=== PATIENT | female | born 1940 | race Caucasian/White ===

== ENCOUNTER → 2025-03-01 | Outpatient (CLI) | payer MEDICARE, SELFPAY ==
[2025-03-01 10:10] LABS: Basophils # (Auto) 0.1 Thou/mm3 (0.0-0.2); Basophils % (Auto) 1 % (0-2.5); Eosinophils # (Auto) 0.2 Thou/mm3 (0.0-0.5); Eosinophils % (Auto) 4 % (0-10); Hematocrit 37.9 % (36.0-46.0); Hemoglobin 13.4 g/dL (12.0-16.0); Immature Granulocytes % (Auto) 0 % (0-0); Immature Granulocytes Auto 0.01 Thou/mm3 (0.00-0.00); Lymphocytes # (Auto) 1.6 Thou/mm3 (1.0-4.8); Lymphocytes % (Auto) 31 % (10-50); Mean Corpuscular HGB Conc 35.4 g/dl (31.0-37.0); Mean Corpuscular Hemoglobin 34.2 pg (25.0-35.0); Mean Corpuscular Volume 97 fL (80-100); Monocytes # (Auto) 0.5 Thou/mm3 (0.0-0.8); Monocytes % (Auto) 9 % (0-12); Neutrophils # (Auto) 2.9 Thou/mm3 (1.8-7.7); Neutrophils % (Auto) 56 % (37-80); Nucleated Red Blood Cell % 0 /100 WBC (0); Platelet Count 170 Thou/mm3 (140-440); RDW Standard Deviation 46.1 fL (36.4-46.3); Red Blood Count 3.92 Miln/mm3 (4.00-5.20); White Blood Count 5.3 Thou/mm3 (3.6-11.0)
[2025-03-01 10:22] LABS: Glucose Estimated Average 123 mg/dL (80-131); Hemoglobin A1C 5.9 % Hgb (4.8-6.0)
[2025-03-01 10:28] LABS: Alanine Aminotransferase 13 U/L (10-49); Albumin, Serum 4.6 gm/dL (3.4-4.8); Albumin/Globulin Ratio 1.7 (1.2-2.2); Alkaline Phosphatase 55 U/L (46-116); Anion Gap 10 (7-16); Aspartate Amino Transferase 25 U/L (0-34); BUN/Creatinine Ratio 15 Ratio (12-20); Bilirubin,Total 0.7 mg/dL (0.3-1.2); Blood Urea Nitrogen 17 mg/dL (9-23); Calcium 9.7 mg/dL (8.3-10.6); Calcium (Corrected) 9.7 mg/dL (8.5-10.1); Carbon Dioxide 27.5 mMol/L (20.0-31.0); Cardiac Risk Estimate 3.5 RATIO (3.7-5.6); Chloride 105 mMol/L (98-107); Cholesterol 145 mg/dL (132-200); Creatinine (Component) 1.1 mg/dL (0.6-1.3); Free T4 (Free Thyroxine) 1.25 ng/dL (0.89-1.76); Globulin 2.7 gm/dL (2.3-3.5); Glucose 116 mg/dL (74-106); HDL Cholesterol 41 mg/dL (40-60); LDL Cholesterol,Calculated 69 mg/dL (0-130); Osmolality,Calculated 285 (275-295); Potassium 4.9 mMol/L (3.4-5.1); Sodium 142 mMol/L (136-145); Thyroid Stimulating Hormone 1.78 uIU/mL (0.55-4.78); Total Protein 7.3 gm/dL (5.7-8.2); Triglycerides 176 mg/dL (30-150); Vitamin B12 622 pg/mL (211-911); Vitamin D 25 Hydroxy Total 38.4 ng/mL (7.3-40.2); eGFR 50 See Note
[2025-03-01 10:45] LABS: Syphilis Nonreactive (Nonreactive)
== END | disposition home or self-care (01) ==
PROVIDERS: PCP Family Medicine; Referring Provider Psychiatry & Neurology Neurology; Visit Provider Psychiatry & Neurology Neurology
DX: R41.3 Other amnesia (principal); E78.5 Hyperlipidemia, unspecified; I10 Essential (primary) hypertension
CPT/HCPCS: 36415; 80053; 80061; 82306; 82607; 83036; 84439; 84443; 85025; 86780

== ENCOUNTER → 2025-03-01 | Outpatient (CLI) | payer MEDICARE, SELFPAY ==
--- NOTE | 2025-03-01 13:00 | XR_ITS ---
Examination: CT brain head without contrast. 2-D sagittal coronal reconstructions Date and time of exam:March 01, 2025 1336 hours INDICATIONS: Increasing memory loss 10 years CTDI: vol (mGy):44.9 DLP: (mGycm):887 Technique: Multiple CT axial sections of the brain have been obtained, 5 mm slice thickness. Contrast has not been administered. 2-D sagittal, coronal reconstructions have been obtained Low dose protocols were performed. One or more of the following dose reduction techniques were used; automated exposure control, adjustment of the mA and/or KV according to patient size, use of iterative reconstruction technique. Findings: No significant ventricular enlargement. Moderate atrophy Intra-axial or extra-axial hemorrhage density is not seen. No mass effect or midline shift Basal cisterns are not remarkable. Fourth ventricle is midline. Cranial vault intact. Impression: Negative for acute hemorrhage, mass effect or midline shift
== END | disposition home or self-care (01) ==
PROVIDERS: PCP Family Medicine; Referring Provider Psychiatry & Neurology Neurology; Visit Provider Psychiatry & Neurology Neurology
DX: R41.3 Other amnesia (principal)
CPT/HCPCS: 70450

== ENCOUNTER → 2025-08-08 | Outpatient (CLI) | payer MEDICARE, SELFPAY ==
[2025-08-08 12:20] LABS: Alanine Aminotransferase 20 U/L (10-49); Albumin, Serum 4.9 gm/dL (3.4-4.8); Albumin/Globulin Ratio 1.6 (1.2-2.2); Alkaline Phosphatase 67 U/L (46-116); Anion Gap 9 (7-16); Aspartate Amino Transferase 33 U/L (0-34); BUN/Creatinine Ratio 8 Ratio (12-20); Bilirubin,Total 0.7 mg/dL (0.3-1.2); Blood Urea Nitrogen 9 mg/dL (9-23); Calcium 10.4 mg/dL (8.3-10.6); Calcium (Corrected) 10.4 mg/dL (8.5-10.1); Carbon Dioxide 25.1 mMol/L (20.0-31.0); Chloride 105 mMol/L (98-107); Creatinine (Component) 1.1 mg/dL (0.6-1.3); Globulin 3.0 gm/dL (2.3-3.5); Glucose 109 mg/dL (74-106); Osmolality,Calculated 277 (275-295); Potassium 4.5 mMol/L (3.4-5.1); Sodium 139 mMol/L (136-145); Total Protein 7.9 gm/dL (5.7-8.2); eGFR 50 See Note
== END | disposition home or self-care (01) ==
PROVIDERS: PCP Family Medicine; Referring Provider Family Medicine; Visit Provider Family Medicine
DX: N18.1 Chronic kidney disease, stage 1 (principal)
CPT/HCPCS: 36415; 80053

== ENCOUNTER 2025-08-16 08:57 | Observation (INO) | payer MEDICARE, SELFPAY ==
[2025-08-16] VITALS (10 sets, daily range): BP systolic 113–163; BP diastolic 76–90; PULSE 64–98; RESP 16–99; TEMP 36.2–37.1; O2SAT 92–100; BMI 21.8; BMI 23.8; BMI 23.4
--- NOTE | 2025-08-16 09:00 | PC.NURSE ---
PER OXYGEN EQUIPMENT PREPARER DEPPEN, NO STROKE ALERT
--- NOTE | 2025-08-16 09:06 | EKG_ITS ---
[facility] Test Date: 2025-08-16 Pat Name: SAMM KIDD Department: Room: - Gender: Female Card Maker: : 1940 Requested By: Anthony Ibarra (ALEX) Order Number: [id number] Reading MD: Anthony Ibarra (CHIEF GAUGER) Measurements Intervals [place] Rate: 64 P: 37 CA: 180 QRS: 5 QRSD: 78 T: -15 QT: 390 QTc: 404 Interpretive Statements SINUS RHYTHM LOW QRS VOLTAGE IN PRECORDIAL LEADS [QRS DEFLECTION < 1.0 mV IN CHEST LEADS] NONSPECIFIC T-WAVE ABNORMALITY No previous ECG available for comparison /store/S0/[id number]
--- NOTE | 2025-08-16 09:18 | XR_ITS ---
Examination: CT brain head without contrast. 2-D sagittal coronal reconstructions Date and time of exam: August 16, 2025, 10:00 a.m., comparison March 01, 2025 INDICATIONS: Head pain dizziness beginning 1 week ago CTDI: vol (mGy): 46.3 DLP: (mGycm): 890 Technique: Multiple CT axial sections of the brain have been obtained, 5 mm slice thickness. Contrast has not been administered. 2-D sagittal, coronal reconstructions have been obtained Low dose protocols were performed. One or more of the following dose reduction techniques were used; automated exposure control, adjustment of the mA and/or KV according to patient size, use of iterative reconstruction technique. Findings: No significant ventricular enlargement. Moderate atrophy Intra-axial or extra-axial hemorrhage density is not seen. No mass effect or midline shift Basal cisterns are not remarkable. Fourth ventricle is midline. Cranial vault intact. Impression: Negative for acute hemorrhage, mass effect or midline shift Advise clinical correlation and follow-up accordingly
[2025-08-16 09:41] LABS: Basophils # (Auto) 0.1 Thou/mm3 (0.0-0.2); Basophils % (Auto) 1 % (0-2.5); Eosinophils # (Auto) 0.2 Thou/mm3 (0.0-0.5); Eosinophils % (Auto) 3 % (0-10); Hematocrit 40.9 % (36.0-46.0); Hemoglobin 14.1 g/dL (12.0-16.0); Immature Granulocytes Auto 0.01 Thou/mm3 (0.00-0.00); Lymphocytes # (Auto) 1.9 Thou/mm3 (1.0-4.8); Lymphocytes % (Auto) 31 % (10-50); Mean Corpuscular HGB Conc 34.5 g/dl (31.0-37.0); Mean Corpuscular Hemoglobin 34.6 pg (25.0-35.0); Mean Corpuscular Volume 100 fL (80-100); Monocytes # (Auto) 0.6 Thou/mm3 (0.0-0.8); Monocytes % (Auto) 9 % (0-12); Neutrophils # (Auto) 3.4 Thou/mm3 (1.8-7.7); Neutrophils % (Auto) 55 % (37-80); Nucleated Red Blood Cell # 0.00 Thou/mm3 (0.00-0.00); Nucleated Red Blood Cell % 0 /100 WBC (0); Platelet Count 182 Thou/mm3 (140-440); RDW Standard Deviation 47.5 fL (36.4-46.3); Red Blood Count 4.08 Miln/mm3 (4.00-5.20); White Blood Count 6.1 Thou/mm3 (3.6-11.0)
[2025-08-16 09:55] LABS: INR 1.0 (0.9-1.3); Partial Thromboplastin Time 26.5 Seconds (22.0-36.0); Prothrombin Time 10.8 Seconds (9.0-12.2)
[2025-08-16 09:58] LABS: Collection Type, Urine Clean Catch
[2025-08-16 10:00] LABS: Alanine Aminotransferase 16 U/L (10-49); Albumin, Serum 5.0 gm/dL (3.4-4.8); Albumin/Globulin Ratio 2.1 (1.2-2.2); Alkaline Phosphatase 61 U/L (46-116); Anion Gap 9 (7-16); Aspartate Amino Transferase 29 U/L (0-34); BUN/Creatinine Ratio 11 Ratio (12-20); Bilirubin,Total 0.8 mg/dL (0.3-1.2); Blood Urea Nitrogen 12 mg/dL (9-23); Calcium 9.8 mg/dL (8.3-10.6); Calcium (Corrected) 9.8 mg/dL (8.5-10.1); Carbon Dioxide 27.4 mMol/L (20.0-31.0); Chloride 104 mMol/L (98-107); Creatinine (Component) 1.1 mg/dL (0.6-1.3); Estimated Creatinine Clearance 33.5 mL/min (>60); Globulin 2.4 gm/dL (2.3-3.5); Glucose 122 mg/dL (74-106); Magnesium 2.2 mg/dL (1.6-2.6); Osmolality,Calculated 280 (275-295); Potassium 4.2 mMol/L (3.4-5.1); Sodium 140 mMol/L (136-145); Total Protein 7.4 gm/dL (5.7-8.2); Troponin I < 0.002 ng/mL (0.0-0.045); eGFR 50 See Note
[2025-08-16 10:07] LABS: B-Type Natriuretic Peptide 35 pg/mL (0-100)
[2025-08-16 10:09] LABS: Bacteria,Urine Rare; Bilirubin,Urine Negative (Negative); Blood,Urine Negative (Negative); Color,Urine Lt-Yellow (Lt Yel-Yel); Glucose, Urine Negative (Negative); Ketones,Urine Negative (Negative); Leukocyte Esterase,Urine Positive (Negative); Nitrite,Urine Negative (Negative); PH,Urine 7.0 (5.0-7.0); Protein,Urine Negative (Neg - Trace); RBC,Urine 3 /hpf (0-3); Specific Gravity,Urine 1.012 (1.001-1.035); Squamous Epithelial Cell,Urine 7 /hpf (0-5); Urobilinogen,Urine Negative mg/dL (0.0-1.0); WBC,Urine 38 /hpf (0-5)
[2025-08-16 10:10] LABS: Clarity,Urine Hazy (Clear/Hazy); Culture Indicated,Urine Yes
--- NOTE | 2025-08-16 11:06 | PD.EDNEURO ---
Neuro Symptoms Deficit-RME/HPI General Chief Complaint: Neuro Symptoms/Deficit Stated Complaint: DIZZINESS, UNABLE TO STAND, LWK @2AM Time Seen by Provider: 08/16/25 09:24 Arrival date/time: 08/16/25 08:57 RME / HPI RME / HPI Narrative: 84-year-old female presented with dizziness and abnormal gait noted upon waking at 03:00 (2025-08-16), with symptoms described as feeling pulled to the side when attempting to get out of bed and walk. Family member provided history, reporting that the gait change is different from the patient?s baseline. Past medical history includes dementia and chronic kidney disease stage 1; surgical history notable for sacral stimulator placement. Patient denies headache, vision changes, nausea, vomiting, or other acute symptoms. Related Data Home Medications ?Medication ?Instructions ?Recorded ?Confirmed propranolol 40 mg tablet 40 mg PO QDAY 01/13/19 04/06/22 simvastatin 40 mg tablet 40 mg PO QHS 01/13/19 04/06/22 estradiol 0.01% (0.1 mg/gram) 1 g vaginal QWEEK 03/17/22 04/06/22 vaginal cream (Estrace) Allergies Allergy/AdvReac Type Severity Reaction Status Date / Time amoxicillin (From Amoxil) Allergy Verified 08/16/25 08:59 cephalexin (From Keflex) Allergy Verified 08/16/25 08:59 ciprofloxacin (From Cipro) Allergy Verified 08/16/25 08:59 sulfamethoxazole (From Allergy Verified 08/16/25 08:59 Septra) trimethoprim (From Septra) Allergy Verified 08/16/25 08:59 Review of Systems Review of Systems Systems Reviewed: All systems reviewed, normal except as documented Past Medical History Past Medical History Comments PMH COMMENT: - Dementia - Chronic kidney disease stage 1 ED Exam Narrative Physical exam: General: Elderly, nontoxic appearance, no acute distress. Eyes: Appear normal with no scleral icterus. HENT: Normocephalic, atraumatic; extraocular movements intact; pupils equal, round, reactive to light. Neck: Atraumatic, supple. Cardiac: Regular rate and rhythm; no murmurs. Respiratory: Lungs clear to auscultation bilaterally; no respiratory distress. Abdomen: Soft, non distended; mild tenderness in right lower abdomen; no rebound or guarding. MS: No deformities; range of motion intact bilaterally. Skin: No exanthems, no cyanosis, no diaphoresis. Neurologic: Alert and oriented; strength 5/5 in upper and lower extremities; no facial droop; rapid alternating hand movements intact bilaterally; romberg negative; gait unsteady with right-sided drift; requires assistance to ambulate. Psychological: Cooperative and participatory with examination. Course Course Course Narrative: 1102h: Spoke w Dr. Mccartney regarding patient's presentation and ED course. Does recommend obtaining MRI and admission for further evaluation. Patient's labs reviewed and urinalysis noted to have slight abnormalities. Does have history of urine infections in the past and this may be a early UTI so would consider covering for same, but unable to rule out CVA either at this time. Will call for admission. Quality Measures none Orders Category Date Time Status COVID-19 Screening Questionnaire NOW Care 08/16/25 11:09 Active Cottrell Blower NOW Care 08/16/25 09:06 Active Decision to Admit X1 Care 08/16/25 11:09 Active EKG (ED ONLY) *Do not use* NOW Care 08/16/25 09:06 Completed MRI Screening NOW Care 08/16/25 11:[address] head/brain wo con Stat Exams 08/16/25 09:18 Completed EKG (ED Only) Stat Exams 08/16/25 09:06 Draft MR head/brain wo con Stat Exams 08/16/25 Ordered B-Type Natriuretic Peptide Stat Lab 08/16/25 09:16 Completed CBC Stat Lab 08/16/25 09:16 Completed Comprehensive Metabolic Panel Stat Lab 08/16/25 09:16 Completed Magnesium Stat Lab 08/16/25 09:16 Completed Partial Thromboplastin Time Stat Lab 08/16/25 09:16 Completed Prothrombin Time with INR Stat Lab 08/16/25 09:16 Completed Troponin I Stat Lab 08/16/25 09:16 Completed Urinalysis, C/S if Indicated Stat Lab 08/16/25 09:50 Completed Urine Culture Stat Lab 08/16/25 09:50 Received Meclizine HCl [Antivert] Med 08/16/25 10:55 Discontinued 25 mg PO X1 ONE Vital Signs Vital signs: Vital Signs Temperature 98.8 F 08/16/25 09:10 Pulse Rate 76 08/16/25 09:10 Respiratory Rate 16 08/16/25 09:10 Blood Pressure 163/76 H 11/20/25 09:10 Pulse Oximetry (%) 97 08/16/25 09:10 Oxygen Delivery Method Room Air 08/16/25 09:10 Neuro Symptoms / Deficit MDM Narrative MDM Narrative:: This 84-year-old female with dementia and CKD stage 1 presents with acute onset dizziness and abnormal gait since 03:00, with symptoms different from baseline per family. Exam reveals alertness, intact cranial nerves, and strength, but unsteady gait with right-sided drift requiring assistance. Urinalysis shows 38 WBCs, rare bacteria, and negative nitrites; CBC and CMP are within normal limits. CT brain is normal. Given the acute undiagnosed gait disturbance in an elderly patient with dementia, and after discussion with neurology, admission is recommended for MRI and neuroevaluation to assess for possible atypical cerebrovascular accident. Differential includes acute ischemic stroke, vestibular neuritis, cerebellar ataxia, medication side effect, and normal pressure hydrocephalus. The abnormal urinalysis is noted but may not completely explain the neurologic findings. Disposition is admission for further workup and monitoring due to high-risk features, including acute change from baseline and need for advanced imaging and specialist evaluation. Patient data External records reviewed:: [facility] previous records Clinical information provided by:: patient and family Social determinants that could affect healthcare access:: none Patient has the following chronic illnesses:: Dementia, CKD1 How is presenting disease/condition affected by chronic disease/condition?: no chronic disease Evaluation data The following diagnostics were reviewed and interpreted by me:: lab results and radiology exam(s) Lab and/or radiology exams considered but not ordered:: none Interpretation Summary: as above Medications / Prescriptions Medications or Prescriptions considered but not ordered:: none Medication administrations:: Medication Administration History Discontinued Medications Meclizine HCl (Meclizine Hcl 25 Mg Tablet) 25 mg PO X1 ONE Stop: 08/16/25 10:56 Last Admin: 08/16/25 11:12 Dose: 25 mg Documented By: EF . Consultations Consultation(s) initiated? (list below): Yes Diagnosis Neuro Differential Diagnosis: cerebrovascular accident, transient cerebral ischemia and other Most likely diagnosis given after review of the tests above:: Abnormal gait, dizziness, abnormal urinalysis Admission Indicated Admission indicated?: indicated Admission Request Was there a request for admission?: Yes Admission Attestation Admission request attestation: Discussed case with [] from Hospitalist service regarding admission. Discussed patients ED course, exam findings, labs, and radiology results. The Hospitalist [agrees,declines] to accept the patient for admission. Disposition Plan Disposition Plan: Admit Discharge Plan Plan Patient Disposition: Admit Acute Care w/in Hospital Patient condition on transfer: Stable Prescriptions/Referrals Prescriptions/Med Rec: No Action simvastatin 40 mg tablet 40 mg PO QHS propranolol 40 mg tablet 40 mg PO QDAY estradiol [Estrace] 0.01 % (0.1 mg/gram) cream 1 g vaginal QWEEK Referrals: Karon Alamo MD [Primary Care Provider, Family Practice] - In 1 week Problem List Clinical Impression: Dizziness, Abnormal urinalysis, Abnormal gait Patient/Caregiver Discharge Instructions Print Language: Divehi Stand Alone Forms: Mary Award Info., Patient Portal Info Letter
[2025-08-16] MEDS: MECLIZINE HCL 25 MG TABLET PO (11:12)
--- NOTE | 2025-08-16 11:49 | ECHO_ITS ---
Patient Info Name: Karen Dubois Age: 84 years : 1940 Gender: Female Ht: 163 cm Wt: 58 kg BSA: 1.62 m2 BP: 163 / 96 mmHg HR: 71 bpm Exam Date: 08/16/2025 2:59 PM Admit Date: 08/16/2025 Site: [facility] Room Number: [id number] Patient Status: I Exam Type: CA echo doppler complete Luggage Maker: Maryanne Perrin Ordering Physician: Siva Hoyos Study Info Indications Stroke - Primary Location: S2NX Left Ventricular Outflow Tract Name Value Normal LVOT 2D LVOT Diameter 1.9 cm LVOT Doppler LVOT Peak Velocity 84 cm/s LVOT Mean Gradient 2 mmHg LVOT VTI 21 cm LVOT VTI/AV VTI Ratio 1.0 LVOT Stroke Volume 60 ml Pulmonic Valve Name Value Normal PV Doppler PV Peak Velocity 65 cm/s PV Regurgitation Doppler RI Peak End Diastolic Velocity 83 cm/s Mitral Valve Name Value Normal MV Doppler MV Decel Mcminn 230 cm/s2 MV PHT 62 ms MV Area (PHT) 3.5 cm2 4.0-5.0 MV Diastolic Function MV E Peak Velocity 50 cm/s MV A Peak Velocity 72 cm/s MV E/A 0.7 MV Annular TDI MV Septal e' Velocity 6.1 cm/s MV E/e' (Septal) 8.1 MV Lateral e' Velocity 6.3 cm/s MV E/e' (Lateral) 7.8 MV e' Average 6.20 cm/s MV E/e' (Average) 8.0 Tricuspid Valve Name Value Normal TV Regurgitation Doppler TR Peak Velocity 134 cm/s Estimated PAP/RSVP RA Pressure 8 mmHg <=5 PA Systolic Pressure 15 mmHg <36 RV Systolic Pressure 15 mmHg <36 Aortic Valve Name Value Normal AV 2D/MM AV Cusp Sep (MM) 1.4 cm AV Doppler AV Peak Velocity 100 cm/s AV Mean Gradient 2 mmHg AV VTI 21 cm AV Area (Cont Eq VTI) 2.9 cm2 >=3.0 AV Area (Cont Eq Matt) 2.4 cm2 AV DI (Matt) 0.84 AV Regurgitation 2D LVOT Area 2.8 cm2 Ventricles Name Value Normal LV Dimensions 2D/MM IVS Diastolic Thickness (2D) 1.0 cm 0.6-0.9 LVID Diastole (2D) 3.6 cm 3.8-5.2 LVIW Diastolic Thickness (2D) 0.8 cm 0.6-0.9 LVID Systole (2D) 2.3 cm 2.2-3.5 LVOT Diameter 1.9 cm LV Mass (2D Cubed) 92.79 g 67.00-162.00 LV Mass Index (2D Cubed) 57 g/m2 43-95 Relative Wall Thickness (2D) 0.44 <=0.42 IVS/LVIW Diastolic Thickness (2D) 1.25 0.00-1.50 LV Fractional Shortening/Ejection Fraction 2D/MM LV Fractional Shortening (2D) 36 % 27-45 LV EF (2D Isaíasichsharron) 67 % Atria Name Value Normal LA Dimensions LA Volume (4C A-L) 29 ml LA Volume (BP A-L) 25 ml Left Ventricle Left ventricular chamber dimension is normal. Left ventricular systolic function is normal with visually estimated ejection fraction of 60-65%. There is normal geometry noted in the left ventricle. Left ventricular segmental wall motion is normal. There is grade I diastolic dysfunction in the left ventricle. Right Ventricle Right ventricular chamber dimension is normal. Right ventricular systolic function is normal. Left Atrium Left atrial chamber dimension is normal. Right Atrium Right atrial chamber dimension is normal. Aortic Valve The aortic valve is trileaflet. There is mild aortic valve sclerosis. There is no aortic valve stenosis with a peak velocity of 100 cm/s, mean gradient of 2 mmHg, and aortic valve area of 2.9 cm2. There is no aortic valve regurgitation. Pulmonic Valve The pulmonic valve is normal. There is no pulmonic valve stenosis. There is trace pulmonic regurgitation. Mitral Valve The mitral valve has thickened leaflets. Mild MAC. There is no mitral valve stenosis. There is trace mitral valve regurgitation. Tricuspid Valve The tricuspid valve leaflets are normal. There is no tricuspid valve stenosis. There is trace tricuspid valve regurgitation. No pulmonary hypertension, estimated pulmonary arterial systolic pressure is 15 mmHg and systemic blood pressure of 163 mmHg in systole. Pericardium/Pleural The pericardium appears normal. There is no pericardial effusion. No pleural effusion visualized. Inferior Vena Cava Not well visualized inferior vena cava with >50% collapse upon inspiration consistent with normal right atrial pressure, 8 mmHg. Aorta The aortic measurements are indexed to age and body surface area. The aortic root at the sinus of Valsalva is not well visualized. The prox ascending aorta is not well visualized. Summary 1. Left ventricle size is normal and systolic function is normal. Estimated ejection fraction is 60-65%. There is grade I diastolic dysfunction. 2. Right ventricle chamber size is normal and systolic function is normal. Estimated RVSP is 15 mmHg. 3. There is mild aortic valve sclerosis with no stenosis. 4. The mitral valve has thickened leaflets. Mild MAC. 5. There is trace mitral valve regurgitation. 6. There is trace tricuspid valve regurgitation. 7. trace pulmonic valve regurgitation. 8. Not well visualized IVC with estimated RA pressure 8 mmHg. Report Signatures Finalized by Lizz Bland on 08/17/2025 05:17 PM
[2025-08-16 12:25] LABS: Cardiac Risk Estimate 3.6 RATIO (3.7-5.6); Cholesterol 150 mg/dL (132-200); Glucose Estimated Average 120 mg/dL (80-131); HDL Cholesterol 42 mg/dL (40-60); Hemoglobin A1C 5.8 % Hgb (4.8-6.0); LDL Cholesterol,Calculated 75 mg/dL (0-130); Triglycerides 166 mg/dL (30-150)
--- NOTE | 2025-08-16 14:01 | ESHP_ITS ---
<Statement entered by Bety Gan MD - 08/28/25 08:30> I reviewed above note and agree with findings and plans. I have also personally examined the patient with medicine team and went over assessment and plan with medical team including international specialist and resident physician. Documentation for date of: 08/16/25 [facility] History of Present Illness History of present illness: HPI: 84-year-old female past medical history of dementia, CKD stage I, bladder incontinence, and hyperlipidemia presented to the ED on 08/16/2025 with chief complaint of ataxia. The patient woke up at 3:00 in the morning and described an unsteady gait with bilateral lower extremity ataxia when she went to the restroom and returned to bed. She woke back up at 7:00 in the morning and felt the same, at which time she called her son to bring her to the ED. During these times she mentioned that she needed to hold onto something in order to avoid falling. Her last known well was the evening before presentation at approximately 9 PM. She denied feeling dizzy, having a headache, loss of consciousness, vision changes, weakness, shortness of breath, or chest palpitations at 3 AM, 7 AM, or upon admission. Head CT in the ED was negative for acute infarction or hemorrhage. The patient was admitted for ataxia and stroke rule out. ED Course: * Significant vitals: BP 163/76 * Significant labs: No significant labs conducive to the patient's presentation * Imaging: Head CT showed moderate atrophy, no evidence of acute infarct or hemorrhage. EKG showed sinus rhythm * Urinalysis showed a WBC of 38, leukocyte esterase positive * Patient was given a one-time dose of 25 mg oral meclizine History: * Past medical history: As above in the HPI * Surgical history: Appendectomy, unspecified bladder stimulation device * Social history: Lives on son's property in separate housing. No use of alcohol tobacco or other illicit drugs. 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 Patient felt like she could not walk right and felt like she was going to fall. * HEENT: Denies headache, congestion, or sore throat. * Cardiac: Denies chest pain or palpitations. * Pulmonary: Denies shortness of breath or cough. * GI: Denies nausea, vomiting, diarrhea, constipation, melena, or hematochezia. * : Denies dysuria, hematuria, frequency, or urgency. * MSK: Denies pain in the extremities, joints, or myalgias. * Neuro: Denies weakness, numbness, dizziness, vision changes, or speech difficulty. Exam Vital Signs Temp Pulse Resp BP Pulse Ox O2 Del Method FiO2 98.8 F 71 17 113/77 100 Room Air 95 08/16/25 10:00 08/16/25 12:00 08/16/25 10:00 08/16/25 10:00 08/16/25 10:00 08/16/25 10:00 08/16/25 11:47 Narrative Exam General: Awake and in no acute distress. Conversational and non-toxic appearing. Neurologic: No gross neurological deficitGCS 15. Alert and oriented x3, and patient able to move all 4 extremities. HEENT: Pupils 2 mm and reactive to light. Normocephalic, atraumatic, mucous membranes moist. Heart: Regular rate and rhythm, normal S1 and S2, no murmurs. Lungs: Clear to auscultation bilaterally with no wheezing or crackles. Abdomen: Soft, nondistended, nontender, positive bowel sounds. No guarding or rebound tenderness. Extremities: 5 out of 5 strength in the upper and lower extremities bilaterally. No edema. 2+ radial and dorsalis pedis pulses bilaterally. Skin: Warm. Dry. No rash or ecchymoses. Results: Labs 08/16/25 09:16 08/16/25 09:16 Labs: Short CBC 08/16/25 Range/Units 09:16 WBC 6.1 (3.6-11.0) Thou/mm3 Hgb 14.1 (12.0-16.0) g/dL Hct 40.9 (36.0-46.0) % Plt Count 182 (140-440) Thou/mm3 BMP 08/16/25 09:16 Sodium 140 Potassium 4.2 Chloride 104 Carbon Dioxide 27.4 BUN 12 Creatinine 1.1 Glucose 122 H Calcium 9.8 Cardiac Enzymes 08/16/25 Range/Units 09:16 Troponin I < 0.002 (0.0-0.045) ng/mL Liver Function 08/16/25 Range/Units 09:16 Total Bilirubin 0.8 (0.3-1.2) mg/dL AST 29 (0-34) U/L ALT 16 (10-49) U/L Alkaline Phosphatase 61 (46-116) U/L Albumin 5.0 H (3.4-4.8) gm/dL Urine 08/16/25 Range/Units 09:50 Urine Color Lt-Yellow (Lt Yel-Yel) Urine Clarity Hazy (Clear/Hazy) Urine pH 7.0 (5.0-7.0) Ur Specific [place] 1.012 (1.001-1.035) Urine Protein Negative (Neg - Trace) Urine Glucose (UA) Negative (Negative) Quality Measures Quality Measures none Advance care planning discussed with:: patient Medications Home Medications and Allergies Home Medications ?Medication ?Instructions ?Recorded ?Confirmed ?Type propranolol 40 mg tablet 40 mg PO QDAY 01/13/1908/16 History simvastatin 40 mg tablet 40 mg PO QHS 01/13/19 History estradiol 0.01% (0.1 mg/gram) 1 g vaginal QWEEK 08/16/25 History vaginal cream (Estrace) donepezil 5 mg tablet 5 mg PO .bedtime 08/16/25 History Allergies Allergy/AdvReac Type Severity Reaction Status Date / Time amoxicillin (From Amoxil) Allergy Verified 08/16/25 08:59 cephalexin (From Keflex) Allergy Verified 08/16/25 08:59 ciprofloxacin (From Cipro) Allergy Verified 08/16/25 08:59 sulfamethoxazole (From Allergy Verified 08/16/25 08:59 Septra) trimethoprim (From Septra) Allergy Verified 08/16/25 08:59 Visit Medications Aspirin (Aspirin Ec 81 Mg Tabec) 81 mg PO QDAY PHILIP Stop: 09/16/25 08:59 Atorvastatin Calcium (Atorvastatin Calcium 10 Mg Tablet) 10 mg PO HS PHILIP Stop: 09/15/25 20:59 Enoxaparin Sodium (Enoxaparin Sod Inj 40 Mg/0.4 Ml Syringe) 40 mg SC QDAY PHILIP Stop: 08/31/25 08:59 Ondansetron HCl (Ondansetron Inj 2 Mg/Ml Inj 2 Ml) 4 mg IVP Q4HR PRN PRN Reason: NAUSEA OR VOMITING Stop: 09/15/25 11:46 Discontinued Medications Meclizine HCl (Meclizine Hcl 25 Mg Tablet) 25 mg PO X1 ONE Stop: 08/16/25 10:56 Last Admin: 08/16/25 11:12 Dose: 25 mg Assessment & Plan Plan Summary: 84-year-old female past medical history of dementia, CKD stage I, bladder incontinence, and hyperlipidemia presented to the ED on 08/16/2025 with chief complaint of ataxia. Head CT in the ED was negative. Patient was admitted for ataxia and stroke rule out. #Ataxia #Stroke Rule Out #TIA * Patient woke up at 3 in the morning and described ataxia, however she was able to walk back to bed with her walker after using the restroom * Patient woke up at 7 in the morning and felt the same, prompting her to call her son to bring her to the ED * Head CT in the ED showed moderate diffuse atrophy but was negative for any acute hemorrhage or infarct * Patient denied feeling dizzy, weak, having any vision changes, having loss of consciousness, or having a headache * Patient has never had an episode like this before * Patient has no focal neurological deficits on exam * Patient has returned to baseline, which may reinforce a TIA diagnosis * Patient's neurologist: Dr. Mccartney Plan: * Neurology consulted * Neurochecks every 4 hours * Aspiration precautions, elevate head of bed, n.p.o., nurse swallow screen * MRI ordered * Echo ordered #UTI * Urinalysis showed a WBC of 38, leukocyte esterase positive Plan: * Will start nitrofurantoin 100 mg p.o. twice daily * Cultures pending #Dementia * Patient takes donepezil 5 mg daily Plan: * Consider restarting after swallow screen #Hyperlipidemia * Lipid panel showed a triglyceride level of 166 * Patient takes simvastatin 40 mg Plan: * Consider restarting after swallow screen #CKD stage I * Patient's BUN and creatinine is normal * Her electrolyte panel is normal * Reinforces that the patient is having adequate kidney function Plan: * No direct intervention at this time #Hypertension * Patient takes propranolol 40 mg daily Plan: * Holding for now, pending stroke rule out Hospital Maintenance: DVT ppx: Lovenox 40 mg subcu daily GI ppx: Not indicated at this time Diet: N.p.o. IV lines: Peripheral IVs Code status: Full code Dispo: Patient admitted to telemetry, n.p.o., pending MRI for stroke rule out, neurochecks. Patient was seen and discussed with my attending physician Dr. Elvia WU. Siva Hoyos DO PGY-1.
[2025-08-16 17:30] LABS: Vitamin B12 515 pg/mL (211-911); Vitamin D 25 Hydroxy Total 40.4 ng/mL (7.3-40.2)
[2025-08-16] MEDS: NITROFURANTOIN MACRO 100 MG CAPSULE PO (17:37)
--- NOTE | 2025-08-16 20:41 | PD.RESCONSUL ---
HPI Data of Consult Consult date: 08/16/25 Requesting Physician: Bety Gan MD Admitting Provider: Bety Gan MD Attending Provider: Chan Mccartney MD Primary Care Provider: Karon Alamo MD Consult Narrative Reason for consult: Ataxia History of present illness: 84y/o F with PMHx of Dementia, CKD, bladder incontinence, and hyperlipidemia who presented to the ED due to unsteadiness walking. She states that she woke up around 3 am feeling off while ambulating she went to the restroom and went back to sleep. However the next day she woke up with the same feeling and off balance while ambulating and called her son to bring her to the ED. She denies any headache, blurry vision, feeling of fullness in her ears, fever, chills, shortness of breath, dizziness, chest pain, palpitations. ED course: Vitals on arrival BP 163/76, HR 76bpm, saturating 96% on room air. Labs mostly benign. Head CT negative for hemorrhage, mass efffect or midline shift. EKG showed NSR PMHx: as above SxHx: appendectomy, bladder procedure Social Hx: denies x3 cc:: cc: Bety Gan MD Exam Vital Signs Temp Pulse Resp BP Pulse Ox O2 Del Method FiO2 97.1 F 90 22 H 121/78 92 L Room Air 95 08/16/25 20:00 08/16/25 20:00 08/16/25 20:00 08/16/25 20:00 08/16/25 20:00 08/16/25 20:00 08/16/25 11:47 Narrative Exam Physical Exam GENERAL: NAD, AAOx3 HEENT: Moist mucosa. Eyes open, symmetrical, & clear CARDIO: Heart RRR, no obvious murmurs PULM: No noted coughing/dyspnea CTA B/L, no R/W/R GI: Abdomen soft, nondistended, no pain on palpation. BSx4 SKIN/MSK/EXT: No wounds/rashes/edema/amputations, no pain on palpation. Pedal pulses present B/L NEURO: AAOx3, no focal neuro deficits, able to move all 4 extremities Results Labs 08/16/25 09:16 08/16/25 09:16 Labs: Short CBC 08/16/25 Range/Units 09:16 WBC 6.1 (3.6-11.0) Thou/mm3 Hgb 14.1 (12.0-16.0) g/dL Hct 40.9 (36.0-46.0) % Plt Count 182 (140-440) Thou/mm3 BMP 08/16/25 09:16 Sodium 140 Potassium 4.2 Chloride 104 Carbon Dioxide 27.4 BUN 12 Creatinine 1.1 Glucose 122 H Calcium 9.8 Cardiac Enzymes 08/16/25 Range/Units 09:16 Troponin I < 0.002 (0.0-0.045) ng/mL Liver Function 08/16/25 Range/Units 09:16 Total Bilirubin 0.8 (0.3-1.2) mg/dL AST 29 (0-34) U/L ALT 16 (10-49) U/L Alkaline Phosphatase 61 (46-116) U/L Albumin 5.0 H (3.4-4.8) gm/dL Urine 08/16/25 Range/Units 09:50 Urine Color Lt-Yellow (Lt Yel-Yel) Urine Clarity Hazy (Clear/Hazy) Urine pH 7.0 (5.0-7.0) Ur Specific [place] 1.012 (1.001-1.035) Urine Protein Negative (Neg - Trace) Urine Glucose (UA) Negative (Negative) Quality Measures Quality Measures none Advance care planning discussed with:: patient Medications Home Medications and Allergies Home Medications ?Medication ?Instructions ?Recorded ?Confirmed ?Type propranolol 40 mg tablet 40 mg PO QDAY 01/13/19 08/16/25 History simvastatin 40 mg tablet 40 mg PO QHS 01/13/19 08/16/25 History estradiol 0.01% (0.1 mg/gram) 1 g vaginal QWEEK 03/17/22 08/16/25 History vaginal cream (Estrace) donepezil 5 mg tablet 5 mg PO .bedtime 08/16/25 08/16/25 History Allergies Allergy/AdvReac Type Severity Reaction Status Date / Time amoxicillin (From Amoxil) Allergy Verified 08/16/25 08:59 cephalexin (From Keflex) Allergy Verified 08/16/25 08:59 ciprofloxacin (From Cipro) Allergy Verified 08/16/25 08:59 sulfamethoxazole (From Allergy Verified 08/16/25 08:59 Septra) trimethoprim (From ) Allergy Verified 08/16/25 08:59 Visit Medications Aspirin (Aspirin Ec 81 Mg Tabec) 81 mg PO QDAY PHILIP Stop: 09/16/25 08:59 Atorvastatin Calcium (Atorvastatin Calcium 10 Mg Tablet) 10 mg PO HS PHILIP Stop: 09/15/25 20:59 Enoxaparin Sodium (Enoxaparin Sod Inj 40 Mg/0.4 Ml Syringe) 40 mg SC QDAY PHILIP Stop: 08/31/25 08:59 Nitrofurantoin Macrocrystals (Nitrofurantoin Macro 100 Mg Capsule) 100 mg PO BID PHILIP Stop: 08/23/25 16:44 Last Admin: 08/16/25 17:37 Dose: 100 mg Ondansetron HCl (Ondansetron Inj 2 Mg/Ml Inj 2 Ml) 4 mg IVP Q4HR PRN PRN Reason: NAUSEA OR VOMITING Stop: 09/15/25 11:46 Discontinued Medications Meclizine HCl (Meclizine Hcl 25 Mg Tablet) 25 mg PO X1 ONE Stop: 08/16/25 10:56 Last Admin: 08/16/25 11:12 Dose: 25 mg Assessment & Plan Plan 84 y/o F with PMHX as stated above who presented to the ED due to imbalance and ataxia. #Ataxia #CVA Rule Out #Dementia LWK around 9pm of 08/15 presented with off balance and what she describes as ataxia, however she was able to ambulate around her room and on the hallway in telemetry CT head negative for acute hemorrhage, mass effect or midline shift EKG on presentation shows NSR, denies any chest pain, or palpitations or any hx of abnormal heart rhythms No complaints of dizziness, syncope, fullness in the ears, weakness, or headache Patient currently at her baseline - Follow up MRI brain - pending Echo - Follow up B12 and Vit D lvls - Aspirin 81mg and statin therapy - Neuro checks q 4 hours - Continue donepezil as taken at home #UTI #Hyperlipidemia #CKD stage IIIa #Hypertension - as per primary team Case discussed with my attending Dr. Bib Bryant MD PGY-2
[2025-08-16] MEDS: ATORVASTATIN CALCIUM 10 MG TABLET PO (20:55)
[2025-08-17] VITALS: BP 129/77; PULSE 77; PULSE 88; RESP 13; TEMP 36.3; O2SAT 96
--- NOTE | 2025-08-17 | XR_ITS ---
Examinations: MRI Brain without intravenous contrast. MRA brain without intravenous contrast. MRA carotids without intravenous contrast 3-D vascular reconstructions Date and time of exam: August 17, 2025, 12:51 p.m. INDICATIONS: Onset ataxia August 16, 2025 Technique: Multiple axial and sagittal images of the brain have been obtained MRA brain carotid images without contrast obtained, including 3-D postprocessing, vascular maximum intensity projection images Findings: Sellaturcica is not enlarged. The optic chiasm and infundibular stalk are not remarkable. Prepontine and interpeduncular cisterns are not enlarged. No localized enlargement of the medulla or barb. Fourth ventricle and cerebellar tonsils normal in position. Subacute hemorrhage is not seen. Fourth ventricle is midline. Mass in the cerebellopontine angle region is not evident. 7th and 8th nerve complexes exhibits symmetry. Globes are symmetrical with no retro-orbital mass. Increased white matter signal moderate Diffusion-weighted images demonstrate no focus of restrictive diffusion Mass-effect upon the ventricular system is not identified. MRA carotid images degraded by patient motion. MRA brain images no large vessel occlusions Impression: Negative for acute hemorrhage, mass effect or midline shift No acute infarct Prominent chronic microvascular white matter change
[2025-08-17 04:00] VITALS: BP 127/89; PULSE 78; PULSE 80; RESP 20; TEMP 36.3; O2SAT 97
[2025-08-17 05:53] VITALS: BMI 23.4
[2025-08-17 06:18] LABS: Basophils # (Auto) 0.0 Thou/mm3 (0.0-0.2); Basophils % (Auto) 1 % (0-2.5); Eosinophils # (Auto) 0.2 Thou/mm3 (0.0-0.5); Eosinophils % (Auto) 2 % (0-10); Hematocrit 37.2 % (36.0-46.0); Hemoglobin 12.8 g/dL (12.0-16.0); Immature Granulocytes Auto 0.02 Thou/mm3 (0.00-0.00); Lymphocytes # (Auto) 2.1 Thou/mm3 (1.0-4.8); Lymphocytes % (Auto) 27 % (10-50); Mean Corpuscular HGB Conc 34.4 g/dl (31.0-37.0); Mean Corpuscular Hemoglobin 34.3 pg (25.0-35.0); Mean Corpuscular Volume 100 fL (80-100); Monocytes # (Auto) 0.8 Thou/mm3 (0.0-0.8); Monocytes % (Auto) 10 % (0-12); Neutrophils # (Auto) 4.5 Thou/mm3 (1.8-7.7); Neutrophils % (Auto) 60 % (37-80); Nucleated Red Blood Cell # 0.00 Thou/mm3 (0.00-0.00); Nucleated Red Blood Cell % 0 /100 WBC (0); Platelet Count 162 Thou/mm3 (140-440); RDW Standard Deviation 47.7 fL (36.4-46.3); Red Blood Count 3.73 Miln/mm3 (4.00-5.20); White Blood Count 7.5 Thou/mm3 (3.6-11.0)
[2025-08-17 06:38] LABS: Alanine Aminotransferase 16 U/L (10-49); Albumin, Serum 4.3 gm/dL (3.4-4.8); Albumin/Globulin Ratio 1.8 (1.2-2.2); Alkaline Phosphatase 54 U/L (46-116); Anion Gap 10 (7-16); Aspartate Amino Transferase 26 U/L (0-34); BUN/Creatinine Ratio 10 Ratio (12-20); Bilirubin,Total 0.8 mg/dL (0.3-1.2); Blood Urea Nitrogen 10 mg/dL (9-23); Calcium 10.0 mg/dL (8.3-10.6); Calcium (Corrected) 10.0 mg/dL (8.5-10.1); Carbon Dioxide 25.1 mMol/L (20.0-31.0); Chloride 105 mMol/L (98-107); Creatinine (Component) 1.0 mg/dL (0.6-1.3); Estimated Creatinine Clearance 32.2 mL/min (>60); Globulin 2.4 gm/dL (2.3-3.5); Glucose 98 mg/dL (74-106); Magnesium 2.1 mg/dL (1.6-2.6); Osmolality,Calculated 278 (275-295); Phosphorous 3.2 mg/dL (2.4-5.1); Potassium 4.0 mMol/L (3.4-5.1); Sodium 140 mMol/L (136-145); Total Protein 6.7 gm/dL (5.7-8.2); eGFR 56 See Note
[2025-08-17 08:00] VITALS: BP 123/67; PULSE 75; PULSE 82; RESP 24; TEMP 36.1; O2SAT 97
[2025-08-17] MEDS: NITROFURANTOIN MACRO 100 MG CAPSULE PO (08:28)
[2025-08-17] MEDS: ASPIRIN EC 81 MG TABEC PO (08:28)
[2025-08-17] MEDS: ENOXAPARIN SOD INJ 40 MG/0.4 ML SYRINGE SC (08:28)
[2025-08-17] MEDS: DONEPEZIL HCL 5 MG TABLET PO (08:29)
[2025-08-17 09:15] VITALS: PULSE 83; RESP 17; RESP 97
--- NOTE | 2025-08-17 09:15 | PC.SS ---
GANG KNIFE FISH CHOPPER conducted bedside contact with the patient conduct initial assessment and to discuss discharge planning.? Patient confirmed demographic information.? Patient resides at home.? Patient?s residence is on same property as son?s residence, Kei Dubois .? Patient utilizes a walker to assist with ambulation.? Patient does not require the use of oxygen.? Patient describes the ability to complete ADL?s independently.? Patient?s son, Kei Dubois; is patient?s medical POA.? Patient?s PCP is Dr. Alamo.? Patient?s urologist is Dr. Ro.? Patient?s neurologist is Dr. Chavez.? Patient utilizes [facility] for medication services.? Discharge plan is for the patient to return home.? Family to provide transportation on behalf of the patient.? No further discharge needs identified by the patient.? No further intervention required at this time, licensed social worker will be available to address any further concerns.? Next of Kin: Kei Dubois D/C Plan: Home
[2025-08-17] MEDS: ACETAMINOPHEN 325 MG TABLET 650 MG PO (11:49)
[2025-08-17 12:00] VITALS: BP 125/78; PULSE 83; PULSE 89; RESP 17; TEMP 36.6; O2SAT 97
--- NOTE | 2025-08-17 14:03 | ESDS_ITS ---
<Statement entered by Bety Gan MD - 08/28/25 08:30> I reviewed above note and agree with findings and plans. I have also personally examined the patient with medicine team and went over assessment and plan with medical team including wedding planning internship and resident physician. Planned Discharge Date 08/17/25 DS: Providers Provider Date of admission: 08/16/25 11:38 Primary care physician: Karon Alamo MD Admitting Provider: Bety Gan MD Attending Provider on Admission: Bety Gan MD Consults: 08/16/25 14:50 Consult to Neurology / Tele-Neurology Routine Comment: Stroke rule out Consulting Provider: Chan Mcacrtney Attending Provider on DC: Bety Gan MD Discharging Provider: Siva Hoyos DO DS: Diagnosis Discharge Diagnosis (1) Abnormal gait: Status: Acute (2) UTI (urinary tract infection): Status: Acute Problem List Completed Was Problem List Reviewed/Reconciled?: Yes Hospital Course Hospital Course Hospital course: Hospital Course: 84-year-old female past medical history of dementia, CKD stage I, bladder incontinence, and hyperlipidemia presented to the ED on 08/16/2025 with chief complaint of ataxia. The patient woke up at 3:00 in the morning and described an unsteady gait with bilateral lower extremity ataxia when she went to the restroom and returned to bed. She woke back up at 7:00 in the morning and felt the same, at which time she called her son to bring her to the ED. During these times she mentioned that she needed to hold onto something in order to avoid falling. Her last known well was the evening before presentation at approximately 9 PM. She denied feeling dizzy, having a headache, loss of consciousness, vision changes, weakness, shortness of breath, or chest palpitations at 3 AM, 7 AM, or upon admission. Head CT in the ED was negative for acute infarction or hemorrhage. The patient was admitted for ataxia and stroke rule out. The patient was started on nitrofurantoin for her UTI. The patient had an MRI of her brain that was negative for acute hemorrhage or infarct. There was prominent chronic microvascular white matter change. The patient was started on aspirin and will continue her nitrofurantoin outpatient. She will will follow- up with her neurologist within 2 weeks of discharge Problem List: #Ataxia #Stroke Rule Out #TIA #UTI #Dementia #Hyperlipidemia #CKD stage I #Hypertension Instructions: * Take your aspirin 81 mg daily * Take your nitrofurantoin 100 mg twice a day * Continue taking all other home medications as prescribed * Follow-up with your neurologist Dr. Mccartney within 1-2 weeks of discharge * If you do not have a PCP, then you can follow-up at the [facility] * Return to the emergency room if symptoms worsen The patient was seen and discussed with my attending physician Dr. Elvia WU. Siva Hoyos DO PGY-1 Time Spent with Patient Time attestation: Total time spent providing and/or coordinating discharge services: More than 50% Time spent: Greater than 30 minutes Exam Vital Signs Temp Pulse Resp BP Pulse Ox O2 Del Method FiO2 97.8 F 89 17 125/78 97 Room Air 95 08/17/25 12:00 08/17/25 12:00 08/17/25 12:00 08/17/25 12:00 08/17/25 12:00 08/17/25 12:00 08/16/25 11:47 Narrative Exam General: Awake and in no acute distress. Conversational and non-toxic appearing. Neurologic: No gross neurological deficits. GCS 15. Alert and oriented x3, and patient able to move all 4 extremities. HEENT: Pupils 2 mm and reactive to light. Normocephalic, atraumatic, mucous membranes moist. Heart: Regular rate and rhythm, normal S1 and S2, no murmurs. Lungs: Clear to auscultation bilaterally with no wheezing or crackles. Abdomen: Soft, nondistended, nontender, positive bowel sounds. No guarding or rebound tenderness. Extremities: 5 out of 5 strength in the upper and lower extremities bilaterally. No edema. 2+ radial and dorsalis pedis pulses bilaterally. Skin: Warm. Dry. No rash or ecchymoses. Discharge Plan Plan Patient Disposition: HOME (Self Care) Disposition Comment: Home with son Patient condition on transfer: Stable Care Plan Goals: Instructions: * Take your aspirin 81 mg daily * Take your nitrofurantoin 100 mg twice a day * Continue taking all other home medications as prescribed * Follow-up with your neurologist Dr. Mccartney within 1-2 weeks of discharge * If you do not have a PCP, then you can follow-up at the [facility] * Return to the emergency room if symptoms worsen Prescriptions/Referrals Prescriptions/Med Rec: New aspirin 81 mg Tablet,Delayed Release (Dr/Ec) 81 mg PO QDAY 30 Days Qty: 30 0RF nitrofurantoin monohyd/m-cryst 100 mg Capsule 100 mg PO BID 3 Days Qty: 6 0RF Continued simvastatin 40 mg tablet 40 mg PO QHS propranolol 40 mg tablet 40 mg PO QDAY estradiol [Estrace] 0.01 % (0.1 mg/gram) cream 1 g vaginal QWEEK Patient Comments: Uses a small amount each night donepezil 5 mg tablet 5 mg PO .bedtime Patient Comments: TAKE 1 TABLET BY MOUTH AT BEDTIME Referrals: Karon Alamo MD [Primary Care Provider, Family Practice] Patient/Caregiver Discharge Instructions Education Materials: Discharge Instructions for Stroke, ED Dizziness or Syncope ... Print Language: Spanish Stand Alone Forms: Mary Award Info., Patient Portal Info Letter Discharge Order Discharge Orders: Discharge (Routine); Ordered 08/17/25 Ordered By: Bety Gan Quality Discharge Quality Measures VTE prophylaxis
--- NOTE | 2025-08-17 15:41 | PC.SS ---
MILITARY SCIENCE TEACHER and charge nurse met with patient's son, Kei Dubois ; who voiced concern that as patient's listed medical POA medical team is initiating contact with the patient regarding treatment plan and medical treatment versus conducting conversation directly with son, Kei Dubois. Patient's son requesting continuity of care by being initial contact regarding patients's medical treatment plan. Patient's board updated listing son as POA with listed number. Charge nurse confirmed plan to update providers to conduct conversation of POA directly. Patient's son requesting to submit complaint. MILITARY SCIENCE TEACHER informed patient's son that risk management staff will be contacted. MILITARY SCIENCE TEACHER contacted risk management staff and provided update on request. Risk management to follow up with patient's son.
[2025-08-17 16:00] VITALS: BP 125/69; BP 131/62; PULSE 74; PULSE 81; RESP 21; TEMP 36.1; TEMP 37.1; O2SAT 94; O2SAT 97
--- NOTE | 2025-08-17 18:32 | PD.VPROG1 ---
Telemedicine visit statement This visit was conducted with the use of interactive audio and video telecommunications system that permits real time communication between the patient and the provider. Patient's verbal consent for virtual visit was obtained on 08/17/25 at 1832. Documentation for date of: 08/17/25 Virtual exam Vital Signs Temp Pulse Resp BP Pulse Ox O2 Del Method FiO2 98.7 F 81 21 H 125/69 94 L Room Air 95 08/17/25 16:00 08/17/25 16:00 08/17/25 16:00 08/17/25 16:00 08/17/25 16:00 08/17/25 16:00 08/16/25 11:47 Objective Labs 08/17/25 05:17 08/17/25 05:17 Labs: Laboratory Results - last 24 hr 08/17/25 05:17 WBC 7.5 RBC 3.73 L Hgb 12.8 Hct 37.2 MCV 100 MCH 34.3 MCHC 34.4 RDW Std Deviation 47.7 H Plt Count 162 Neut % (Auto) 60 Lymph % (Auto) 27 Heard % (Auto) 10 Eos % (Auto) 2 Baso % (Auto) 1 Neut # (Auto) 4.5 Lymph # (Auto) 2.1 Heard # (Auto) 0.8 Eos # (Auto) 0.2 Baso # (Auto) 0.0 Immature Gran # (Auto) 0.02 H Absolute Nucleated RBC 0.00 Immature Gran % 0 Nucleated RBC % 0 Sodium 140 Potassium 4.0 Chloride 105 Carbon Dioxide 25.1 Anion Gap 10 BUN 10 Creatinine 1.0 Estim Creat Clear Calc 32.2 L eGFR 56 L BUN/Creatinine Ratio 10 L Glucose 98 Calculated Osmolality 278 Calcium 10.0 Corrected Calcium 10.0 Phosphorus 3.2 Magnesium 2.1 Total Bilirubin 0.8 AST 26 ALT 16 Alkaline Phosphatase 54 Total Protein 6.7 Albumin 4.3 D Globulin 2.4 Albumin/Globulin Ratio 1.8
== END 2025-08-17 16:00 | disposition home or self-care (01) ==
LOC: SERX 11:16 → S2NX 08-17 07:08 → SERHOLD 08-20 06:58 → S2NX 08-20 06:58
PROVIDERS: Nurse Practitioner Primary Care; Student in an Organized Health Care Education/Training Program; Admitting Provider Internal Medicine; Emergency Provider Family Medicine; PCP Family Medicine; Visit Provider Internal Medicine
DX: G45.9 Transient cerebral ischemic attack, unspecified (principal); R27.0 Ataxia, unspecified; N39.0 Urinary tract infection, site not specified; I12.9 Hypertensive chronic kidney disease with stage 1 through stage 4 chronic kidney disease, or unspecified chronic kidney disease; N18.1 Chronic kidney disease, stage 1; F03.90 Unspecified dementia, unspecified severity, without behavioral disturbance, psychotic disturbance, mood disturbance, and anxiety; E78.5 Hyperlipidemia, unspecified
CPT/HCPCS: 36415; 70450; 70544; 80053; 80061; 81001; 82306; 82607; 83036; 83735; 83880; 84100; 84484; 85025; 85610; 85730; 87086; 93005; 93306; 96372; 99283; G0378; J1650; A9270

== ENCOUNTER → 2025-09-03 | Outpatient (CLI) | payer MEDICARE, SELFPAY ==
--- NOTE | 2025-09-03 09:45 | XR_ITS ---
Examination: Retroperitoneal ultrasound, complete Technique: Multiple high resolution grayscale images of the retroperitoneum obtained, including kidneys and bladder. Exam date and time: September 03, 2025, 0924 hours INDICATIONS: Urinary incontinence stage I FINDINGS: Right kidney 9.4 cm cortex 1.2 cm Left kidney 10.0 cm renal cortex 1.3 cm Moderate renal scar formation No hydronephrosis or renal calculi Bladder prevoid volume 129 cc postvoid volume 102 cc No bladder mass Incidental note large right ovarian cyst 8.4 x 8.4 x 8.2 cm IMPRESSION: Moderate renal scar formation Bilateral renal cortical thinning Recommend pelvic sonography to further assess large right ovarian cyst
== END | disposition home or self-care (01) ==
PROVIDERS: PCP Family Medicine; Referring Provider Family Medicine; Visit Provider Family Medicine
DX: N28.89 Other specified disorders of kidney and ureter (principal)
CPT/HCPCS: 76770